=== PATIENT | male | born 1990 | race Caucasian/White ===

== ENCOUNTER 2019-10-10 17:33 | Emergency (ER) | payer BC, OTHER ==
[~2019-10-10] VITALS: Ht 182.8 cm; Wt 89.1 kg
--- NOTE | 2019-10-10 17:51 | ED EENT ---
History of Present Illness General Chief Complaint: Ear Problems Stated Complaint: JAW SWELLING History of Present Illness Date Seen by Provider: Oct 10, 2019 Time Seen by Provider: 17:46 Initial Comments 29-year-old male with preauricular swelling and erythema to the skin. Patient reports it started about 2 days ago. He was started on Augmentin 875 twice daily and has had 3 doses. Reports his continue to worsen. He has some fever and chills. He has no nausea vomiting. Has no dental pain. Allergies and Home Medications Allergies Coded Allergies: No Known Drug Allergies (Unverified , 10/10/19) Home Medications Amoxicillin/Potassium Clav 1 Each Tablet, 1 EACH PO BID, (Reported) Patient Home Medication List Home Medication List Reviewed: Yes Review of Systems Review of Systems Constitutional: chills, fever Eyes: No Symptoms Reported Ears: See HPI Nose: no symptoms reported Mouth: no symptoms reported Throat: no symptoms reported Respiratory: No cough, No short of breath Cardiovascular: No chest pain, No palpitations Gastrointestinal: No nausea, No vomiting Skin: see HPI Past Hgoqigw-Ndsbhh-Uxwazk Hx Past Med/Social Hx: Reviewed Nursing Past Med/Soc Hx Patient Social History Recent Foreign Travel: No Contact w/Someone Who Travel: No Physical Exam Vital Signs Vital Signs - First Documented 10/10/19 17:37 Temp 36.9 Pulse 86 Resp 16 B/P (MAP) 126/75 (92) Pulse Ox 98 O2 Delivery Room Air Height, Weight, BMI Height: '" Weight: lbs. oz. kg; BMI Method: General Appearance: WD/WN, no apparent distress Eyes: bilateral eye normal inspection Ears: left ear other (swelling and erythema on left jaw, neck and preauricular area) Cardiovascular: normal peripheral pulses, regular rate, rhythm Respiratory: lungs clear, normal breath sounds Gastrointestinal: non tender, soft Neurologic/Psychiatric: normal mood/affect, oriented x 3 Skin: other (erythema left lateral face. Review area) Progress/Results/Core Measures Results/Orders Lab Results Laboratory Tests Test 10/10/19 18:05 Range/Units White Blood Count 11.4 H 4.3-11.0 10^3/uL Red Blood Count 4.90 4.35-5.85 10^6/uL Hemoglobin 14.9 13.3-17.7 G/DL Hematocrit 43 40-54 % Mean Corpuscular Volume 88 80-99 FL Mean Corpuscular Hemoglobin 30 25-34 PG Mean Corpuscular Hemoglobin Concent 35 32-36 G/DL Red Cell Distribution Width 12.1 10.0-14.5 % Platelet Count 244 130-400 10^3/uL Mean Platelet Volume 10.3 7.4-10.4 FL Neutrophils (%) (Auto) 80 H 42-75 % Lymphocytes (%) (Auto) 9 L 12-44 % Monocytes (%) (Auto) 9 0-12 % Eosinophils (%) (Auto) 1 0-10 % Basophils (%) (Auto) 0 0-10 % Neutrophils # (Auto) 9.1 H 1.8-7.8 X 10^3 Lymphocytes # (Auto) 1.1 1.0-4.0 X 10^3 Monocytes # (Auto) 1.0 0.0-1.0 X 10^3 Eosinophils # (Auto) 0.1 0.0-0.3 10^3/uL Basophils # (Auto) 0.1 0.0-0.1 10^3/uL Sodium Level 139 135-145 MMOL/L Potassium Level 4.5 3.6-5.0 MMOL/L Chloride Level 99 98-107 MMOL/L Carbon Dioxide Level 28 21-32 MMOL/L Anion Gap 12 5-14 MMOL/L Blood Urea Nitrogen 7 7-18 MG/DL Creatinine 0.99 0.60-1.30 MG/DL Estimat Glomerular Filtration Rate > 60 BUN/Creatinine Ratio 7 Glucose Level 109 H 70-105 MG/DL Calcium Level 9.4 8.5-10.1 MG/DL C-Reactive Protein 4.65 H <0.50 MG/DL My Orders Orders - BLANCHARD,JAYLENE L DO Basic Metabolic Panel (10/10/19 17:53) Cbc With Automated Diff (10/10/19 17:53) Procalcitonin (Pct) (10/10/19 17:53) Crp Fs (10/10/19 17:53) Iohexol Injection (Omnipaque 350 Mg/Ml 1 (10/10/19 18:15) Received Contrast (Hold Metformin- Contr (10/10/19 18:15) Sodium Chloride Flush (Catheter Flush Sy (10/10/19 18:15) Ns (Ivpb) (Sodium Chloride 0.9% Ivpb Bag (10/10/19 18:15) Ct Neck (Soft Tissue) W (10/10/19 17:53) Medications Given in ED Current Medications Medications Dose Ordered Sig/Bartolome Route Start Time Stop Time Status Last Admin Dose Admin Iohexol 75 ml ONCE ONCE IV 10/10/19 18:15 10/10/19 18:16 DC 10/10/19 18:24 75 ML Sodium Chloride 10 ml NEEDED PRN IV 10/10/19 18:15 10/10/19 18:22 10 ML Sodium Chloride 100 ml ONCE ONCE IV 10/10/19 18:15 10/10/19 18:16 DC 10/10/19 18:24 80 ML Vital Signs/I&O 10/10/19 17:37 Temp 36.9 Pulse 86 Resp 16 B/P (MAP) 126/75 (92) Pulse Ox 98 O2 Delivery Room Air Progress Progress Note : Time: 19:23 Progress Note Patient with facial cellulitis, no abscess at this time for CT. Patient is already prescribed Augmentin. I will give him a prescription for Bactrim. Discussed with him that symptoms do not start to improve he should stop the Au gmentin and start the Bactrim. Diagnostic Imaging Diagonstic Imaging: CT Comments [facility], [place] NAME: LELO HEWITT [facility]unier [facility] REC#: [id number] PT STATUS: REG ER : 1990 PHYSICIAN: JAYLENE BLANCHARD DO ADMIT DATE: 10/10/19/ER FS Draft Date of Exam:10/10/19 CT NECK (SOFT TISSUE) W PROCEDURE: CT neck soft tissue with contrast. TECHNIQUE: Multiple contiguous axial images were obtained through the neck after the administration of contrast. Auto Exposure Controls were utilized during the CT exam to meet ALARA standards for radiation dose reduction. INDICATION: History of recent abscess below the left ear for the last several days. EXAMINATION: CT soft tissue neck with contrast from 10/10/2019 FINDINGS: There is diffuse prominence of the left parotid gland worse as compared to the right side. It appears diffusely hyperdense perhaps due to hyperemia secondary to inflammatory change. Measurable drainable abscess is not seen, however, there is diffuse fat stranding about the subcutaneous soft tissues surrounding the parotid and extending anterior to the left mandible. The left masseter muscle is enlarged compared to the right and hypervascular. Clinical Application Specialist muscles on the left also more prominent than on the right. Left submandibular gland slightly hypervascular and more prominent than on the opposite side. There are prominent lymph nodes throughout the left aspect of the neck predominantly deep to the sternocleidomastoid muscle. The osseous structures are intact. Lung apices clear. IMPRESSION: 1. Diffuse prominence of the parotid and submandibular glands on the left which appear hyperemic and likely inflamed. No abscess seen at this time. No drainable fluid. 2. Adenopathy left aspect of the neck likely reactive with diffuse soft tissue abnormalities perhaps due to edema versus cellulitis. Dictated on workstation # [id number] Departure Impression Primary Impression: Facial cellulitis Disposition: HOME, SELF-CARE Condition: Stable Departure-Patient Inst. Referrals: ELAYNE GILBERT MD (PCP) Primary Care Physician Patient Instructions: Cellulitis (Skin Infection), Adult (DC) Add. Discharge Instructions: Follow-up with your primary care provider in 2-3 days for recheck of symptoms an d continuation of care All discharge instructions reviewed with patient and/or family. Voiced understanding. Scripts Sulfamethoxazole/Trimethoprim (Bactrim Ds Tablet) 1 Each Tablet 1 EACH PO BID for 10 Days, #20 TAB Prov: JAYLENE BLANCHARD DO 10/10/19 JAYLENE BLANCHARD DO Oct 10, 2019 17:51
--- OUTSIDE RECORDS SUMMARY | 2019-10-10 18:09 | XMS REPORT | Continuity of Care Document ---
Author Organization Unknown Address Unknown Phone Unavailable Allergies There is no data. Medications There is no data. Problems There is no data. Procedures There is no data. Results There is no data. Encounters ACCT No. Visit Date/Time Discharge Status Pt. Type Provider Facility Loc./Unit Complaint [id number] 06/29/2019 10:40:00 06/29/2019 23:59: 59 CLS Outpatient [facility]
[2019-10-10] MEDS ORDERED: AMOX-358 PO (18:10)
[2019-10-10 18:15] LABS: HEMATOCRIT 43 % (40-54); HEMOGLOBIN 14.9 G/DL (13.3-17.7); LYMPHOCYTES % (AUTO) 9 % (12-44); MEAN CORPUSCULAR HEMOGLOBIN 30 PG (25-34); MEAN CORPUSCULAR HGB CONC 35 G/DL (32-36); MEAN CORPUSCULAR VOLUME 88 FL (80-99); MEAN PLATELET VOLUME 10.3 FL (7.4-10.4); MONOCYTES % (AUTO) 9 % (0-12); NEUTROPHILS % (AUTO) 80 % (42-75); PLATELET COUNT 244 10^3/uL (130-400); RED CELL DISTRIBUTION WIDTH 12.1 % (10.0-14.5); WHITE BLOOD COUNT 11.4 10^3/uL (4.3-11.0)
[2019-10-10] MEDS ORDERED: NS 100 ML (IVPB) BAG IV ONE (18:15)
[2019-10-10] MEDS ORDERED: IOHEXOL 350 MG/ML 100 ML (OMNIPAQUE 350) VIAL IV ONE (18:15)
[2019-10-10] MEDS ORDERED: CATHETER FLUSH 10 ML SYR IV PRN (18:15)
[2019-10-10] MEDS ORDERED: HOLD METFORMIN - RECEIVED CONTRAST 20 ML VIAL IV SCH (18:15)
[2019-10-10 18:16] LABS: BASOPHILS # (AUTO) 0.1 10^3/uL (0.0-0.1); BASOPHILS % (AUTO) 0 % (0-10); EOSINOPHILS # (AUTO) 0.1 10^3/uL (0.0-0.3); EOSINOPHILS % (AUTO) 1 % (0-10); LYMPHOCYTES # (AUTO) 1.1 X 10^3 (1.0-4.0); NEUTROPHILS # (AUTO) 9.1 X 10^3 (1.8-7.8)
[2019-10-10 18:34] LABS: BUN/CREATININE RATIO 7; CARBON DIOXIDE 28 MMOL/L (21-32); CHLORIDE 99 MMOL/L (98-107); CREATININE SERUM 0.99 MG/DL (0.60-1.30); GFR ESTIMATED > 60; POTASSIUM 4.5 MMOL/L (3.6-5.0); SODIUM 139 MMOL/L (135-145)
[2019-10-10 18:35] LABS: CALCIUM 9.4 MG/DL (8.5-10.1); GLUCOSE 109 MG/DL (70-105)
--- NOTE | 2019-10-10 19:00 | NUR ---
Report to Bhavesh RESENDIZ.
--- NOTE | 2019-10-10 19:08 | Diagnostic Imaging Report ---
PROCEDURE: CT neck soft tissue with contrast. TECHNIQUE: Multiple contiguous axial images were obtained through the neck after the administration of contrast. Auto Exposure Controls were utilized during the CT exam to meet ALARA standards for radiation dose reduction. INDICATION: History of recent abscess below the left ear for the last several days. EXAMINATION: CT soft tissue neck with contrast from 10/10/2019 FINDINGS: There is diffuse prominence of the left parotid gland worse as compared to the right side. It appears diffusely hyperdense perhaps due to hyperemia secondary to inflammatory change. Measurable drainable abscess is not seen, however, there is diffuse fat stranding about the subcutaneous soft tissues surrounding the parotid and extending anterior to the left mandible. The left masseter muscle is enlarged compared to the right and hypervascular. Car Dispatcher muscles on the left also more prominent than on the right. Left submandibular gland slightly hypervascular and more prominent than on the opposite side. There are prominent lymph nodes throughout the left aspect of the neck predominantly deep to the sternocleidomastoid muscle. The osseous structures are intact. Lung apices clear. IMPRESSION: 1. Diffuse prominence of the parotid and submandibular glands on the left which appear hyperemic and likely inflamed. No abscess seen at this time. No drainable fluid. 2. Adenopathy left aspect of the neck likely reactive with diffuse soft tissue abnormalities perhaps due to edema versus cellulitis. Dictated by: Dictated on workstation # [id number]
[2019-10-10] MEDS ORDERED: Cymbalta (19:12)
[2019-10-10] MEDS ORDERED: SULF1TAB35 PO (19:25)
[2019-10-10 19:29] VITALS: BP 125/71
== END 2019-10-10 19:29 | disposition home or self-care (01) ==
LOC: EDUNIT# 17:33 → ER FS 17:35
DX: L03.211 Cellulitis of face (principal)
CPT/HCPCS: 36415; 70491; 80048; 85025; 86141